=== PATIENT | female | born 1945 | race Caucasian/White ===

== ENCOUNTER 2017-06-07 16:24 | Observation (INO) | payer OTHER ==
[~2017-06-07] VITALS: Ht 152.4 cm; Wt 74.3 kg
[~2017-06-07 16:24] MED LIST: CALTRATE 6001 TABLE1 PO; CENTRUM SILVER1 EAC3 PO; COMPAZINE10 MG PO; COZAAR25 MG PO; FOLIC ACID0.4 MG PO; LORAZEPAM0.5 MG PO; LOSARTAN POTASS50 MG PO; MONTELUKAST SOD10 MG PO; OMEPRAZOLE40 M1 PO; PRAVACHOL40 MG PO; PROVENTIL HFA6.7 GM IH; SERTRALINE HCL50 MG PO; SYMBICORT60 INHALAT IH
[2017-06-07 16:53] LABS: BASOPHIL (%) 0.8 % (0-1); BASOPHIL COUNT 0.1 K/uL (0-0.1); EOSINOPHIL COUNT 0.2 K/uL (0-0.3); HEMATOCRIT 41.8 % (36.0-46.0); HEMOGLOBIN 13.6 G/DL (11.9-15.5); IMMATURE GRANULOCYTE (%) 0.3 % (0.0-0.7); LYMPHOCYTE (%) 19.6 % (15-42); LYMPHOCYTE COUNT 2.2 K/uL (1.0-2.8); MCH 27.6 PG (29.0-34.0); MCHC 32.5 G/DL (30.0-36.0); MCV 84.8 FL (83-99); MONOCYTE (%) 9.7 % (3-12); MONOCYTE COUNT 1.1 K/uL (0-0.8); NEUTROPHIL (%) 67.6 % (45-76); NEUTROPHIL COUNT 7.7 K/uL (1.8-6.4); PLATELET COUNT 309 K/uL (156-360); RBC DIS.WIDTH-CV 13.2 % (11.8-14.6); RBC DIS.WIDTH-SD 41.4 % (39-53); RED BLOOD COUNT 4.93 M/uL (3.80-5.20); WHITE BLOOD COUNT 11.4 K/uL (4.1-10.2)
[2017-06-07 17:05] LABS: PTT 29.5 SEC (25-37)
[2017-06-07 17:13] LABS: TROP-I INTERPRETATION NEGATIVE; TROPONIN-I < 0.01 ng/mL (0.0-0.30)
[2017-06-07 17:21] LABS: AMYLASE 60 IU/L (1-118); CHLORIDE 103 mEq/L (99-109); POTASSIUM 3.8 mEq/L (3.7-5.4); SODIUM 138 mEq/L (136-147)
[2017-06-07 17:23] LABS: GLUCOSE 114 mg/dL (70-99)
[2017-06-07 17:26] LABS: SERUM ETHYL ALCOHOL < 10 mg/dL
[2017-06-07 17:27] LABS: GFR ESTIMATE (CALCULATED) 58 mL/min/
[2017-06-07 17:28] LABS: UREA NITROGEN (BUN) 18 mg/dL (9-23)
[2017-06-07 17:30] LABS: LIPASE 31 U/L (1.0-51.0)
[2017-06-07] MEDS ORDERED: ADULT ASPIRIN R81 MG PO (17:49)
[2017-06-07] MEDS ORDERED: ATIVAN0.5 MG PO (17:49)
[2017-06-07 18:41] LABS: APPEARANCE CLEAR ((CLEAR)); BILIRUBIN NEGATIVE; BLOOD NEGATIVE; COLOR COLORLESS ((YELLOW)); GLUCOSE (STRIP) NEGATIVE; KETONES NEGATIVE; LEUKOCYTES NEGATIVE; NITRITE NEGATIVE; PROTEIN (STRIP) NEGATIVE; SPECIFIC GRAVITY 1.003 (1.000-1.030); UCUL ADDED? NO; UROBILINOGEN 0.2 MG/DL (0.2-1.0)
[2017-06-07 18:56] LABS: AMPHETAMINE NEGATIVE (500 ng/mL); BARBITURATES NEGATIVE (200 ng/mL); BENZODIAZEPINES NEGATIVE (150 ng/mL); BUPRENORPHINE NEGATIVE (10 ng/mL); COCAINE NEGATIVE (150 ng/mL); METHADONE NEGATIVE (200 ng/mL); METHAMPHETAMINE NEGATIVE (500 ng/mL); OPIATES (MORPHINE) NEGATIVE (100 ng/mL); OXYCODONE NEGATIVE (100 ng/mL); PHENCYCLIDINE NEGATIVE (25 ng/mL); PROPOXYPHENE NEGATIVE (300 ng/mL); THC CANNABINOIDS NEGATIVE (50 ng/mL); TRICYCLIC ANTIDEPRESSANTS NEGATIVE (300 ng/mL)
[2017-06-07 21:03] VITALS: BP 163/89
[2017-06-08 08:30] VITALS: BP 168/75
[2017-06-08 09:04] LABS: HEMATOCRIT 40.2 % (36.0-46.0); HEMOGLOBIN 12.8 G/DL (11.9-15.5); MCH 26.9 PG (29.0-34.0); MCHC 31.8 G/DL (30.0-36.0); MCV 84.6 FL (83-99); PLATELET COUNT 329 K/uL (156-360); RBC DIS.WIDTH-CV 13.2 % (11.8-14.6); RBC DIS.WIDTH-SD 41.4 % (39-53); RED BLOOD COUNT 4.75 M/uL (3.80-5.20)
[2017-06-08 09:37] LABS: CHLORIDE 100 MEQ/L (99-109); CREATININE 0.8 MG/DL (0.6-1.3); GFR ESTIMATE (CALCULATED) > 59 mL/min/; GLUCOSE 138 mg/dL (70-99); POTASSIUM 4.2 MEQ/L (3.7-5.4); SODIUM 133 MEQ/L (136-147); UREA NITROGEN (BUN) 18 mg/dL (9-23)
[2017-06-08 11:40] VITALS: BP 145/67
[2017-06-08 15:53] VITALS: BP 130/62
[2017-06-08 20:00] VITALS: BP 144/67
[2017-06-08 23:48] VITALS: BP 127/60
[2017-06-09 06:00] LABS: BASOPHIL (%) 0.1 % (0-1); EOSINOPHIL (%) 0 % (0-5); HEMATOCRIT 40.1 % (36.0-46.0); HEMOGLOBIN 12.9 G/DL (11.9-15.5); IMMATURE GRANULOCYTE (%) 0.7 % (0.0-0.7); LYMPHOCYTE (%) 5.8 % (15-42); LYMPHOCYTE COUNT 1.2 K/uL (1.0-2.8); MCH 27.1 PG (29.0-34.0); MCHC 32.2 G/DL (30.0-36.0); MCV 84.2 FL (83-99); MONOCYTE (%) 2.2 % (3-12); MONOCYTE COUNT 0.5 K/uL (0-0.8); NEUTROPHIL (%) 91.2 % (45-76); NEUTROPHIL COUNT 18.4 K/uL (1.8-6.4); PLATELET COUNT 328 K/uL (156-360); RBC DIS.WIDTH-CV 13.2 % (11.8-14.6); RED BLOOD COUNT 4.76 M/uL (3.80-5.20); WHITE BLOOD COUNT 20.1 K/uL (4.1-10.2)
[2017-06-09 06:12] VITALS: BP 111/67
[2017-06-09 06:25] LABS: CHLORIDE 102 MEQ/L (99-109); CREATININE 0.9 MG/DL (0.6-1.3); GFR ESTIMATE (CALCULATED) > 59 mL/min/; GLUCOSE 143 mg/dL (70-99); POTASSIUM 4.4 MEQ/L (3.7-5.4); SODIUM 137 MEQ/L (136-147); UREA NITROGEN (BUN) 19 mg/dL (9-23)
[2017-06-09] MEDS ORDERED: DECADRON4 M1 PO (10:28)
[2017-06-09 12:15] VITALS: BP 144/75
[2017-06-09] MEDS ORDERED: KETOROLAC TROME10 MG PO (12:19)
== END 2017-06-09 12:25 | disposition home or self-care (01) ==
LOC: EME 16:24 → 5WEST 20:20 → EDOF 20:20 → ENRESERV 20:22 → 5WEST 20:48
PROVIDERS: Emergency Medicine Emergency Medical Services; Internal Medicine; Nurse Practitioner Adult Health
DX: G93.6 Cerebral edema (principal); C79.31 Secondary malignant neoplasm of brain; C34.32 Malignant neoplasm of lower lobe, left bronchus or lung; I10 Essential (primary) hypertension; E78.5 Hyperlipidemia, unspecified; F41.9 Anxiety disorder, unspecified; J45.909 Unspecified asthma, uncomplicated; K21.9 Gastro-esophageal reflux disease without esophagitis; Z90.49 Acquired absence of other specified parts of digestive tract; Z80.3 Family history of malignant neoplasm of breast; Z80.6 Family history of leukemia; Z92.21 Personal history of antineoplastic chemotherapy; Z88.5 Allergy status to narcotic agent; Z88.6 Allergy status to analgesic agent
CPT/HCPCS: 70450; 80047; 80048; 81003; 82150; 83690; 84484; 85025; 85027; 85610; 85730; 86850; 86900; 86901; 93005; 99281; 99285; G0378; G0480; J1100; J1644; J1885; J2405

== ENCOUNTER 2017-07-30 00:22 | Observation (INO) | payer OTHER ==
[~2017-07-30] VITALS: Ht 154.9 cm; Wt 76.4 kg
[~2017-07-30 00:22] MED LIST changes: +ADULT ASPIRIN R81 MG PO; +ATIVAN0.5 MG PO; +DECADRON4 M1 PO; +KETOROLAC TROME10 MG PO
[2017-07-30 04:44] LABS: BASOPHIL (%) 0.2 % (0-1); EOSINOPHIL (%) 0.3 % (0-5); EOSINOPHIL COUNT 0.1 K/uL (0-0.3); HEMATOCRIT 38.8 % (36.0-46.0); HEMOGLOBIN 12.9 G/DL (11.9-15.5); IMMATURE GRANULOCYTE (%) 1.2 % (0.0-0.7); LYMPHOCYTE (%) 5.9 % (15-42); LYMPHOCYTE COUNT 1.1 K/uL (1.0-2.8); MCH 28.3 PG (29.0-34.0); MCHC 33.2 G/DL (30.0-36.0); MCV 85.1 FL (83-99); MONOCYTE (%) 7.4 % (3-12); MONOCYTE COUNT 1.4 K/uL (0-0.8); NEUTROPHIL COUNT 15.7 K/uL (1.8-6.4); PLATELET COUNT 320 K/uL (156-360); RBC DIS.WIDTH-SD 43.7 % (39-53); RED BLOOD COUNT 4.56 M/uL (3.80-5.20); WHITE BLOOD COUNT 18.4 K/uL (4.1-10.2)
[2017-07-30 04:53] LABS: CHLORIDE 98 mEq/L (99-109); POTASSIUM 4.1 mEq/L (3.7-5.4); SODIUM 133 mEq/L (136-147)
[2017-07-30 04:56] LABS: GLUCOSE 98 mg/dL (70-99); TOTAL PROTEIN 6.1 g/dL (6.4-8.3)
[2017-07-30 04:57] LABS: TOTAL BILIRUBIN 0.4 mg/dL (0.0-1.0)
[2017-07-30 04:59] LABS: ALKALINE PHOSPHATASE 70 IU/L (3-129); CREATININE 0.7 mg/dL (0.6-1.3); GFR ESTIMATE (CALCULATED) > 59 mL/min/
[2017-07-30 05:00] LABS: UREA NITROGEN (BUN) 18 mg/dL (9-23)
[2017-07-30 05:01] LABS: AST (GOT) 12 IU/L (2-34)
[2017-07-30 05:02] LABS: ALT (GPT) 23 IU/L (3-49)
[2017-07-30] MEDS ORDERED: LOPRESSOR25 MG PO (05:50)
[2017-07-30 06:05] VITALS: BP 165/72
[2017-07-30 06:38] LABS: APPEARANCE CLEAR ((CLEAR)); BILIRUBIN NEGATIVE; BLOOD NEGATIVE; COLOR YELLOW ((YELLOW)); GLUCOSE (STRIP) NEGATIVE; KETONES NEGATIVE; LEUKOCYTES SMALL; NITRITE NEGATIVE; PROTEIN (STRIP) NEGATIVE; SPECIFIC GRAVITY 1.013 (1.000-1.030); UROBILINOGEN 0.2 MG/DL (0.2-1.0)
[2017-07-30 07:12] LABS: BACTERIA RARE /HPF; EPITHELIAL CELLS RARE /HPF; MUCUS 1+ /LPF; RED BLOOD CELLS 0-5 /HPF (0-5)
[2017-07-30 07:16] VITALS: BP 127/64
[2017-07-30] MEDS ORDERED: DECADRON4 M1 PO (08:33)
[2017-07-30 11:59] VITALS: BP 113/59
[2017-07-30 16:30] VITALS: BP 126/61
[2017-07-30 19:07] VITALS: BP 116/59
[2017-07-30 23:40] VITALS: BP 104/56
[2017-07-31 04:27] VITALS: BP 111/61
[2017-07-31 04:51] LABS: HEMATOCRIT 37.5 % (36.0-46.0); HEMOGLOBIN 12.4 G/DL (11.9-15.5); MCH 28.2 PG (29.0-34.0); MCHC 33.1 G/DL (30.0-36.0); MCV 85.4 FL (83-99); PLATELET COUNT 305 K/uL (156-360); RBC DIS.WIDTH-CV 14.3 % (11.8-14.6); RBC DIS.WIDTH-SD 44.5 % (39-53); RED BLOOD COUNT 4.39 M/uL (3.80-5.20)
[2017-07-31 05:05] LABS: CHLORIDE 103 mEq/L (99-109); POTASSIUM 4.4 mEq/L (3.7-5.4); SODIUM 138 mEq/L (136-147)
[2017-07-31 05:07] LABS: GLUCOSE 90 mg/dL (70-99)
[2017-07-31 05:11] LABS: CREATININE 0.8 mg/dL (0.6-1.3); GFR ESTIMATE (CALCULATED) > 59 mL/min/
[2017-07-31 05:12] LABS: UREA NITROGEN (BUN) 17 mg/dL (9-23)
[2017-07-31 09:48] VITALS: BP 144/72
[2017-07-31] MEDS ORDERED: COZAAR25 MG PO (11:19)
[2017-07-31] MEDS ORDERED: CYCLOBENZAPRINE5 MG PO (11:19)
[2017-07-31] MEDS ORDERED: OXYCODONE-APAP1 EACH PO (11:19)
[2017-07-31] MEDS ORDERED: ROXICODONE5 MG PO (11:19)
[2017-07-31] MEDS ORDERED: NITROFURANTOIN100 M3 PO (11:19)
[2017-07-31] MEDS ORDERED: DOCUSATE SODIU100 MG PO (11:19)
[2017-07-31 11:30] VITALS: BP 140/60
== END 2017-07-31 12:05 | disposition home or self-care (01) ==
LOC: EME 00:22 → EDOF 04:58 → 4SOUTH 04:58 → ENRESERV 05:03 → 4SOUTH 05:58
PROVIDERS: Emergency Medicine; Physician Assistant Medical
DX: C78.00 Secondary malignant neoplasm of unspecified lung (principal); C79.31 Secondary malignant neoplasm of brain; N39.0 Urinary tract infection, site not specified; M79.605 Pain in left leg; E87.1 Hypo-osmolality and hyponatremia; D72.829 Elevated white blood cell count, unspecified; I10 Essential (primary) hypertension; M48.061 Spinal stenosis, lumbar region without neurogenic claudication; M54.5 Low back pain; Z92.21 Personal history of antineoplastic chemotherapy; Z92.3 Personal history of irradiation; Z79.52 Long term (current) use of systemic steroids; E78.5 Hyperlipidemia, unspecified; K21.9 Gastro-esophageal reflux disease without esophagitis; N39.3 Stress incontinence (female) (male); Z90.49 Acquired absence of other specified parts of digestive tract; Z80.1 Family history of malignant neoplasm of trachea, bronchus and lung; Z80.3 Family history of malignant neoplasm of breast; Z80.6 Family history of leukemia; Z88.5 Allergy status to narcotic agent; Z88.6 Allergy status to analgesic agent
CPT/HCPCS: 72148; 80048; 80053; 81003; 85025; 85027; 99281; 99285; G0378; G8978 GP CH; G8979 GP CH; G8980 GP CH; J1170; J1644; J3010; J7030; J7040; J7050; J8540